=== PATIENT | male | born 1980 | race Caucasian/White ===

== ENCOUNTER 2022-08-11 17:07 | Emergency (ER) | payer BC, SELFPAY ==
[2022-08-11 17:12] VITALS: BP 160/85; PULSE 65; RESP 18; TEMP 36.6; O2SAT 97; BMI 28.7
--- NOTE | 2022-08-11 17:36 | ED.GENADULT ---
HPI - General Adult General Time Seen by Provider: 17:36 Date Seen: 08/11/22 Chief complaint: Chest Pain Stated complaint: Chest pain Time Seen by Provider: 08/11/22 17:25 Source: patient and RN notes reviewed Mode of arrival: ambulatory Limitations: no limitations History of Present Illness HPI narrative: Patient is a 42-year-old male referred to us from our urgent care. He was referred there by the chiropractor who got a blood pressure of 170 range and historically his blood pressures been in the 120s. He has been out here working and last night was just sitting at his desk when he became lightheaded dizzy felt sweaty. Shortly after that he noted almost like a little heartburn. He does not consistently get heartburn. He eventually went to cuff being checked his blood pressure was in the 140 range. Believes his pulse was in the 70s. Today he is noticed a little left substernal to left chest pain that is dull and achy and has certainly been there since at least noon if not longer. He has felt pain radiating into the back of his left arm. He does go to the chiropractor for her neck and shoulder adjustments. He is a side sleeper and sometimes will get shoulder pain. With his blood pressure being elevated and him supposed to be flying out tomorrow to [place], the chiropractor recommended ER further evaluation. There was a grandfather that of complications of heart disease probably in his early 70s. Pad himself had a history of significant bradycardia when he was younger but was very athletic. It went quite low at 1 point was hospitalized but they never found any etiology and he had no recurrence. His EKG from Urgent Care showed sinus rhythm 63 beats per minutes with a nonspecific T-wave abnormality. There is artifact in V5 and V6 on this as I look at it and flat T-waves and 3 in AVF. I note no specific ischemic change on this EKG is I read it however. He believes he had COVID this past October and maybe once before was even really being tested. No history of any thromboembolic disease. He quit smoking about 5 years ago, noting he had improved blood pressure after quitting smoking. He admits he has been vaping some nicotine products intermittently recently. He is advised to certainly refrain from doing this. No significant alcohol intake. Related Data Home Medications Medication Instructions Recorded Confirmed syringe with needle 3 mL 23 x 1 08/11/22 08/11/22 (BD Luer-Balaji Syringe) tadalafil 5 mg tablet mg 08/11/22 testosterone cypionate 200 mg/mL mg 08/11/22 intramuscular oil Allergies Allergy/AdvReac Type Severity Reaction Status Date / Time No Known Drug Allergies Allergy Verified 08/11/22 17:20 Review of Systems Status of ROS: Reports: 10 or more systems reviewed and unremarkable except as noted in History and below PFSH PFSH Social History Smoking Status: Never smoker Do you use any of these nicotine containing products: None Second hand tobacco smoke exposure: No How often do you have a drink containing alcohol: monthly or less How often do you have six or more drinks on one occasion: Never AUDIT-C Alcohol total score: 1 Non-prescribed substance use: denies use service: No Exam Const: Vital Signs, click to edit/add: Vital Signs - 24 hr 08/11/22 17:12 Temperature 97.8 F Pulse Rate [Pulse Oximeter] 65 Respiratory Rate 18 Blood Pressure [Le ft Forearm] 160/85 H Pulse Oximetry 97 Oxygen Delivery Me thod Room Air Documenting provider has reviewed patient's vital signs: yes Common normals: no apparent distress, average body habitus, oriented x3, no limitations, healthy appearing, alert and well nourished General appearance: cooperative, comfortable and well kempt HENMT: Common normals: normocephalic, head/scalp atraumatic and hearing grossly normal bilaterally Head and scalp: normocephalic and atraumatic Eye: Common normals: PERRL, EOMs intact bilaterally, conjunctivae normal and no scleral icterus Conjunctiva: conjunctiva(e) normal Pupil: PERRL Neck & C-Spine: Common normals: full ROM, no lymphadenopathy, supple, no meningeal signs, no JVD and thyroid normal Thyroid: thyroid normal Chest: Common normals: palpation of chest normal Resp: Common normals: normal respiratory effort, no retractions, no use of accessory muscles and clear to auscultation bilaterally Auscultation: clear to auscultation bilaterally Cardio: Common normals: no JVD, regular rate, regular rhythm, S1 normal heart sound, S2 normal heart sound, no gallops, no clicks and no murmurs Rate: regular rate Rhythm: regular rhythm Heart sounds: S1 normal and S2 normal GI: Common normals: Normal to inspection, nondistended, normoactive bowel sounds present, soft to palpation, non-tender, no hepatosplenomegaly and no masses Palpation: soft and no hepatosplenomegaly Extremity: Common normals: normal to inspection, full ROM, normal capillary refill, no joint enlargement, no clubbing, cyanosis or edema, no calf tenderness and no pedal edema Other: A range of motion of his left shoulder, do not worsen or necessarily reproduce pain. Neuro: Common normals: oriented x3 Sensorium/orientation: alert Meningeal signs: no meningeal signs Psych: Appearance: well kempt Course Course Hospital Course: Patient has had pain for well over 3 hours, will do point of care troponin. Repeat his EKG. Unfortunately do the volume and acuity he is in the hallway. We will attempt to do cardiac monitoring and pulse oximetry. Will get appropriate labs and consider other etiology such as thromboembolic disease with a D-dimer. Will get a portable chest x-ray. We will rule out acute life-threatening diseases such as atherosclerotic coronary artery disease/acute ischemic disease, things like dissection, thromboembolic disease. Reevaluation(s) Reevaluation #1: Reviewed with patient his normal laboratory evaluation. He is a bit concerned about his blood pressure. He states he just recheck it was 170 systolic. He has been doing some electrolyte replenishment which he thinks might have sodium minute. He states he has really been healthy and has not ever had blood pressures this high. At this time I think he is safe to discharge home, review hypertension and risk factors and follow up with his primary care provider within the next 1-2 weeks. I would have him start monitoring his blood pressure in CP. Consideration for workup of secondary causes of hypertension could be entertained by his primary care provider. I see no evidence of any emergent need to work that up here. Certainly does sound like he does try to live healthy lifestyle. Reviewed with him that just with this change that he is suddenly noted with mild to moderately elevated blood pressure, would not recommend initiation out of the ED of antihypertensive medications. I think it is more prudent to have him follow up outpatient and continue to monitor blood pressures for short period. Time: 19:16 Vital Signs Vital signs: Initial Vital Signs Temperature 97.8 F 08/11/22 17:12 Temperature Source Temporal Artery Scan 08/11/22 17:12 Pulse Rate 65 08/11/22 17:12 Pulse Rhythm 08/11/22 17:12 Respiratory Rate 18 08/11/22 17:12 Blood Pressure 160/85 H 08/11/22 17:12 Blood Pressure Mean 110 08/11/22 17:12 Blood Pressure Position Sitting 08/11/22 17:12 Pulse Oximetry 97 08/11/22 17:12 Oxygen Delivery Method 08/11/22 17:12 Vital Signs Temperature 97.8 F 08/11/22 17:12 Pulse Rate 65 08/11/22 17:12 Respiratory Rate 18 08/11/22 17:12 Blood Pressure 160/85 H 08/11/22 17:12 Pulse Oximetry 97 08/11/22 17:12 Oxygen Delivery Method 08/11/22 17:12 Temperature 97.8 F 08/11/22 17:12 Pulse Rate 65 08/11/22 17:12 Respiratory Rate 18 08/11/22 17:12 Blood Pressure 160/85 H 08/11/22 17:12 Pulse Oximetry 97 08/11/22 17:12 Oxygen Delivery Method 08/11/22 17:12 Medical Decision Making Lab Data Lab results reviewed: Yes I reviewed the patient's lab results Labs: Lab Results 08/11/22 08/11/22 08/11/22 Range/Units 17:50 17:50 17:50 WBC 5.86 (4.50-11.00) K/uL RBC 4.98 (4.30-5.90) m/uL Hgb 15.7 (13.5-17.5) gm/dL Hct 44.1 (37.0-53.0) % MCV 89 (80-100) fL MCH 32 (26-34) pg MCHC 36 (32-36) gm/dL RDW Coeff of Edgard 12.1 (11.5-15.5) % Plt Count 204 (140-440) K/uL Neut % (Auto) 52.7 (42.0-72.0) % Lymph % (Auto) 36.7 (20-44) % Bandera % (Auto) 7.5 (0.0-11.0) % Eos % (Auto) 1.9 (0.0-7.0) % Baso % (Auto) 0.9 (0.0-3.0) % Neut # (Auto) 3.09 (1.7-7.0) K/uL Lymph # (Auto) 2.15 (0.90-2.90) K/uL Bandera # (Auto) 0.40 (0.00-0.90) K/UL Eos # (Auto) 0.11 (0.00-0.50) K/uL Baso # (Auto) 0.05 (0.00-0.30) K/uL Abs Immat Gran (auto) 0.02 (0.00-0.30) K/uL D-Dimer Quant (PE/DVT) 0.28 (0.00-0.50) ug/ml Sodium 136 (135-149) mmol/L Potassium 4.0 (3.6-5.1) mmol/L Chloride 102 (96-114) mmol/L Carbon Dioxide 25 (20-32) mmol/L BUN 14 (5-24) mg/dL Creatinine 1.1 (0.5-1.5) mg/dL Estimated Creat Clear 103.49 Estimated GFR 85 ml/min Glucose 106 (60-115) mg/dL Calcium 9.1 (8.4-10.6) mg/dL Total Bilirubin 0.3 (0.1-1.5) mg/dL AST 23 (12-35) U/L ALT 18 (4-50) U/L Alkaline Phosphatase 44 (40-150) U/L C-Reactive Protein < 0.5 L (0.5-1.0) mg/dL NT-Pro-B Natriuret Pep < 11 (0-125) PG/mL Total Protein 7.5 (6.0-8.3) g/dL Albumin 4.7 (3.3-5.0) g/dL POC Troponin I (0.01-0.04) ng/ml 08/11/22 Range/Units 17:50 WBC (4.50-11.00) K/uL RBC (4.30-5.90) m/uL Hgb (13.5-17.5) gm/dL Hct (37.0-53.0) % MCV (80-100) fL MCH (26-34) pg MCHC (32-36) gm/dL RDW Coeff of Edgard (11.5-15.5) % Plt Count (140-440) K/uL Neut % (Auto) (42.0-72.0) % Lymph % (Auto) (20-44) % Bandera % (Auto) (0.0-11.0) % Eos % (Auto) (0.0-7.0) % Baso % (Auto) (0.0-3.0) % Neut # (Auto) (1.7-7.0) K/uL Lymph # (Auto) (0.90-2.90) K/uL Bandera # (Auto) (0.00-0.90) K/UL Eos # (Auto) (0.00-0.50) K/uL Baso # (Auto) (0.00-0.30) K/uL Abs Immat Gran (auto) (0.00-0.30) K/uL D-Dimer Quant (PE/DVT) (0.00-0.50) ug/ml Sodium (135-149) mmol/L Potassium (3.6-5.1) mmol/L Chloride (96-114) mmol/L Carbon Dioxide (20-32) mmol/L BUN (5-24) mg/dL Creatinine (0.5-1.5) mg/dL Estimated Creat Clear Estimated GFR ml/min Glucose (60-115) mg/dL Calcium (8.4-10.6) mg/dL Total Bilirubin (0.1-1.5) mg/dL AST (12-35) U/L ALT (4-50) U/L Alkaline Phosphatase (40-150) U/L C-Reactive Protein (0.5-1.0) mg/dL NT-Pro-B Natriuret Pep (0-125) PG/mL Total Protein (6.0-8.3) g/dL Albumin (3.3-5.0) g/dL POC Troponin I 0.00 L (0.01-0.04) ng/ml Imaging Data Chest x-ray: Attestation: I have reviewed the pertinent imaging results. Radiologist's impression: Patient: ISABELA ZAVALA Facility:?[facility] Patient ID:?[id number] Site Patient ID:?[id number]. Site :?[id number] Study:?XRay Chest PORTABLE-08/11/2022 6:07:11 PM Ordering Physician:?Jared Butler Final Report: INDICATION: Chest pain TECHNIQUE: Single view chest. FINDINGS: The lungs are clear. The heart, mediastinum and pulmonary vessels are of normal size. There is no evidence of pleural disease. IMPRESSION: Negative chest. Dictated by Sybil Sanchez MD @ 08/11/2022 6:18:03 PM (Electronic Signature) ECG Data Attestation: I personally reviewed and interpreted this ECG as follows: (Sinus rhythm, 62 beats per minute. Flattened T-wave lead 3, otherwise no acute T-wave changes that I can see on this EKG. Normal QT interval.) Prior ECG tracings: available for review (From urgent care today) Critical Care Time Critical Care Time Critical Care Time: No Discharge Plan Discharge Clinical Impression: Elevated blood pressure reading, Discomfort in chest Patient Disposition: Home, Self-Care Condition: Stable Instructions: Chest Pain (ED), Heart Healthy Diet (ED), Hypertension (ED) Additional Instructions: Review handouts, minimize any potential risk factors for hypertension that you cu maybe doing. Try to minimize sodium in your diet. Recommend following your blood pressure is and bring readings to a followup appointment with your primary care provider. Do recommend that you see your primary care provider within the next 1-2 weeks. Please bring laboratory results with you. The discomfort certainly could be musculoskeletal, can try some Tylenol and/or ibuprofen per bottle directions for this and see if it helps. There has been no evidence to suggest any heart attack, no elevated D-dimer suggestive of any vascular issue such as clotting or dissection. Certainly if your symptoms are worsening, it is always recommended that you seek re-evaluation. If your blood pressures are remaining elevated, can talk to your doctor about possibility of workup of secondary causes of hypertension. Activity Level: Activity as Tolerated Prescriptions: No Action (DME) BD Luer-Balaji Syringe 3 mL 23 x 1 syringe MISCELLANEOUS Label Comments: use as directed with DEPO TESTOSTERONE testosterone cypionate 200 mg/mL oil Label Comments: inject 0.5 milliliters intramuscularly every 4 days MAXIMUM DAILY DOSE OF 0.5 milliliters tadalafil 5 mg tablet Label Comments: TAKE 1 TABLET BY MOUTH EVERY DAY Follow Up/Referrals: Provider,Not a Local [Primary Care Provider] - Stand Alone Forms: RECCYth Info Instructions
--- NOTE | 2022-08-11 17:37 | CRLHL7_ITS ---
For Patients: As a result of the Century Cures Act, medical imaging exams and procedure reports are released immediately into your electronic medical record. You may view this report before your referring provider. If you have questions, please contact your health care provider. INDICATION: Chest pain TECHNIQUE: Single view chest. FINDINGS: The lungs are clear. The heart, mediastinum and pulmonary vessels are of normal size. There is no evidence of pleural disease. IMPRESSION: Negative chest. Dictated by Sybil Sanchez MD @ 08/11/2022 6:18:03 PM (Electronically Signed)
[2022-08-11 17:59] LABS: Basophils Absolute Auto 0.05 K/uL (0.00-0.30); Basophils Percent Auto 0.9 % (0.0-3.0); Eosinophils Absolute Auto 0.11 K/uL (0.00-0.50); Eosinophils Percent Auto 1.9 % (0.0-7.0); Hematocrit 44.1 % (37.0-53.0); Hemoglobin* 15.7 gm/dL (13.5-17.5); Immature Granulocytes Abs Auto 0.02 K/uL (0.00-0.30); Lymphocytes Absolute Auto 2.15 K/uL (0.90-2.90); Lymphocytes Percent Auto 36.7 % (20-44); Mean Corpuscular HGB Conc 36 gm/dL (32-36); Mean Corpuscular Hemoglobin 32 pg (26-34); Mean Corpuscular Volume 89 fL (80-100); Monocytes Percent Auto 7.5 % (0.0-11.0); Neutrophils Absolute Auto 3.09 K/uL (1.7-7.0); Neutrophils Percent Auto 52.7 % (42.0-72.0); Platelet Count* 204 K/uL (140-440); RDW Coefficient of Variation % 12.1 % (11.5-15.5); Red Blood Count 4.98 m/uL (4.30-5.90); White Blood Count* 5.86 K/uL (4.50-11.00)
[2022-08-11 18:03] LABS: Slide Review Reflex No
[2022-08-11 18:17] LABS: Albumin* 4.7 g/dL (3.3-5.0); Chloride* 102 mmol/L (96-114)
[2022-08-11 18:18] LABS: Sodium* 136 mmol/L (135-149)
[2022-08-11 18:20] LABS: Alkaline Phosphatase* 44 U/L (40-150); Aspartate Amino Transferase* 23 U/L (12-35); Bilirubin Total* 0.3 mg/dL (0.1-1.5); Carbon Dioxide* 25 mmol/L (20-32); Creatinine* 1.1 mg/dL (0.5-1.5); Est. Creatinine Clearance* 103.49; Estimated Glomerular Filt Rate 85 ml/min; Total Protein* 7.5 g/dL (6.0-8.3)
[2022-08-11 18:21] LABS: Alanine Aminotransferase* 18 U/L (4-50); Blood Urea Nitrogen* 14 mg/dL (5-24); Calcium* 9.1 mg/dL (8.4-10.6); Glucose* 106 mg/dL (60-115)
[2022-08-11 18:22] LABS: D Dimer Quantitative* 0.28 ug/ml (0.00-0.50)
[2022-08-11 18:24] LABS: C Reactive Protein* < 0.5 mg/dL (0.5-1.0)
[2022-08-11 18:33] LABS: NT Pro B Type NatriureticPept* < 11 PG/mL (0-125)
[2022-08-11 19:23] VITALS: BP 165/100; PULSE 79; RESP 20; O2SAT 99
[2022-08-11 19:24] VITALS: O2SAT 99
== END 2022-08-11 19:39 | disposition home or self-care (01) ==
PROVIDERS: Emergency Provider Family Medicine
DX: R07.9 Chest pain, unspecified (principal); R03.0 Elevated blood-pressure reading, without diagnosis of hypertension
CPT/HCPCS: 36415; 71045; 80053; 83880; 84484; 85025; 85379; 86140; 93005; 94761; 99284; 99285